=== PATIENT | male | born 1945 | race Caucasian/White ===

== ENCOUNTER 2021-12-15 12:26 | Day surgery (SDC) | payer MEDICARE, OTHER ==
[2021-12-15] MEDS ORDERED: LACTATED RINGERS 1,000 ML IV ONE ×2 (12:33→15:31)
--- NOTE | 2021-12-15 14:09 | ANESTHESIA ---
Pre-Anesthesia VS, & Labs - Diagnosis screening - Procedure colonoscopy Vital Signs: Temp Pulse Resp BP Pulse Ox O2 Flow Rate 37.2 C 78 16 156/66 H 98 0 12/15/21 12:49 12/15/21 12:49 12/15/21 12:49 12/15/21 12:49 12/15/21 12:49 12/15/21 12:49 Height: 6 ft 1 in Weight (kg): 71.4 kg Body Mass Index: 20.7 BMI Classification: Normal - NPO >8 hours Last Fluid Intake: am prep - Lab Results Lab results reviewed: Yes Home Medications and Allergies Home Medications: Ambulatory Orders Losartan [Cozaar] 50 mg PO DAILY 12/14/21 Pantoprazole [Protonix] 40 mg PO DAILY 12/14/21 Losartan [Cozaar] 50 mg PO DAILY 12/14/21 Pantoprazole [Protonix] 40 mg PO DAILY 12/14/21 Allergies/Adverse Reactions: Allergies Allergy/AdvReac Type Severity Reaction Status Date / Time No Known Drug Allergies Allergy Verified 12/14/21 11:46 Anes History & Medical History - Anesthetic History Anesthesia Complications: reports: No previous complications Family history of Anesthesia Complications: Denies - Medical History Cardiovascular: reports: Hypertension Gastrointestinal: reports: GERD - Surgical History General: reports: Colonoscopy Eyes Ears Nose Throat (EENT): reports: Cataracts, Detached retina repair Exam General: Alert, Oriented x3, Cooperative Dental: WNL Mouth Opening: Greater than 4 Fingerbreadths Neck Mobility: Normal Mallampati classification: II Thyromental Distance: 4-6 cm Respiratory: Lungs clear, Normal breath sounds, No respiratory distress Cardiovascular: Regular rate Mental/Cognitive Status: Alert/Oriented X3, Normal for patient Cognitive Status: Within normal limits Plan Anesthesia Type: Total IV Consent for Procedure(s) Verified and Reviewed: Yes Code Status: Attempt Resuscitation ASA classification: 2-Mild systemic disease Is this case an emergency?: No
[2021-12-15] MEDS ORDERED: PROPOFOL 500 MG/50 ML 500 MG/50 ML VIAL ONE (14:47)
[2021-12-15] MEDS ORDERED: PROPOFOL 200 MG/20 ML VIAL IVP ONE (14:47)
[2021-12-15] MEDS ORDERED: LIDOCAINE-MPF 2% 5 ML VIAL ONE (15:01)
--- NOTE | 2021-12-15 15:41 | ANESTHESIA POST OP EVALUATION ---
Anesthesia Post Eval - Post Anesthesia Eval Vitals: Last Vital Signs Temp 36.4 C L 12/15/21 15:32 Pulse 75 12/15/21 15:32 Resp 16 12/15/21 15:32 BP 91/43 L 12/15/21 15:32 Pulse Ox 100 12/15/21 15:32 O2 Flow Rate 0 12/15/21 12:49 CV Function Including HR & BP: Stable Pain Control: Satisfactory Nausea & Vomiting: Negative Mental Status: Baseline Respiratory Status: Airway Patent Hydration Status: Satisfactory Anesthesia Complications: None
[2021-12-15 16:13] VITALS: BP 129/69
== END 2021-12-15 12:27 | disposition home or self-care (01) ==
LOC: SDS 12:26
PROVIDERS: ATTEND Surgery
PROC: 0DBH8ZX Excision of Cecum, Via Natural or Artificial Opening Endoscopic, Diagnostic (ICD-10-PCS; principal; 2021-12-15 13:45)
DX: Z12.11 Encounter for screening for malignant neoplasm of colon (principal); D12.0 Benign neoplasm of cecum; K64.8 Other hemorrhoids; I10 Essential (primary) hypertension
CPT/HCPCS: 45380; J7120